=== PATIENT | male | born 1990 | race African-American/Black ===

== ENCOUNTER 2017-03-30 14:56 | Emergency (ER) | payer MEDICAID ==
--- NOTE | 2017-03-30 15:47 | ED ---
Lower Extremity - HPI Summary HPI Summary: Patient presented with a complaint of left knee pain, but when I went in to evaluate him he admitted he was actually here due to pain on his penis. He had oral sex with a new partner five days ago and since then has had increased pain and swelling on the left side of the shaft of his penis. He put warm compresses on the area and last night pus began to drain from the area. He denies drainage from the meatus and denies fevers, chills, or scrotal pain. - History of Current Complaint Chief Complaint: EDExtremityLower Stated Complaint: LEFT KNEE PAIN Time Seen by Provider: 03/30/17 15:46 Hx Obtained From: Patient Mechanism Of Injury: Unknown Onset of Pain: Days - 5 Severity Initially: Mild Severity Currently: Moderate Pain Intensity: 5 Timing: Constant Location: Is Discrete @ - penis Character Of Pain: Sharp, Aching Associated Signs And Symptoms: Positive: Swelling, Redness Aggravating Factor(s): Movement Alleviating Factor(s): Nothing Able to Bear Weight: Yes - Allergies/Home Medications Allergies/Adverse Reactions: Allergies Allergy/AdvReac Type Severity Reaction Status Date / Time Unable to Obtain Allergy Verified 05/09/14 20:09 PMH/Surg Hx/FS Hx/Imm Hx Psychiatric History: Reports: Hx of Violent Episodes Against Others Infectious Disease History: No Infectious Disease History: Denies: Traveled Outside the [place] in Last 30 Days - Family History Known Family History: Positive: None - Social History Occupation: Unemployed Lives: With Family Alcohol Use: unknown Substance Use Type: Reports: Other Substance Use Comment - Amount & Last Used: unable to obtain Smoking Status (MU): Light Every Day Tobacco Smoker Cessation Counseling: Patient Advised to Stop Review of Systems Negative: Fever, Chills Positive: Other - abscess with purulent drainage All Other Systems Reviewed And Are Negative: Yes Physical Exam Triage Information Reviewed: Yes Vital Signs On Initial Exam: Initial Vitals Temp Pulse Resp BP Pulse Ox 97.7 F 82 18 160/73 100 03/30/17 15:18 03/30/17 15:18 03/30/17 15:18 03/30/17 15:18 03/30/17 15:18 Vital Signs Reviewed: Yes Appearance: Positive: Well-Appearing, Well-Nourished, Pain Distress Skin: Positive: Warm, Skin Color Reflects Adequate Perfusion, Dry, Tender, Soft , Weeping Skin/Lesions - left side of penile shaft, Erythema @ Head/Face: Positive: Normal Head/Face Inspection Eyes: Positive: EOMI, VAUGHN, Conjunctiva Clear ENT: Positive: Hearing grossly normal Neck: Positive: Supple, Nontender, No Lymphadenopathy Respiratory/Lung Sounds: Positive: Breath Sounds Present Cardiovascular: Positive: RRR Abdomen Description: Positive: Nontender, Soft Male Genital Exam: Positive: erythema, lesions - left side of penile shaft. Negative: scrotum tenderness (R), scrotum tenderness (L), testicular tenderness (R), testicular tenderness (L), urethral discharge Musculoskeletal: Positive: Strength/ROM Intact Neurological: Positive: Sensory/Motor Intact, Alert, Oriented to Person Place, Time, NV Bundle Intact Distally, Normal Gait Psychiatric: Positive: Affect/Mood Appropriate AVPU Assessment: Alert Diagnostics - Vital Signs Vital Signs Temp Pulse Resp BP Pulse Ox 03/30/17 15:20 97.7 F 81 18 140/89 100 03/30/17 15:18 97.7 F 82 18 160/73 100 - Laboratory Lab Statement: Any lab studies that have been ordered have been reviewed, and results considered in the medical decision making process. Lower Extremity Course/Dx - Diagnoses Differential Diagnosis/HQI/PQRI: Positive: Arthritis, Bursitis, Cellulitis, Contusion, Infection, Puncture Wound, Septic Arthritis, Sprain, Strain Provider Diagnoses: Penile abscess Discharge - Discharge Plan Condition: Stable Disposition: HOME Prescriptions: DOXYcycline CAP(*) [DOXYcycline 100MG CAP(*)] 100 mg PO BID #13 cap Ibuprofen TAB* [Motrin TAB* 800 MG] 800 mg PO TID PRN #30 tab PRN Reason: Pain oxyCODONE/Acetamin 5/325 MG* [Percocet 5/325 TAB*] 1 tab PO Q8H PRN #6 tab MDD 3 PRN Reason: Pain Patient Education Materials: Abscess (ED) Referrals: [facility]ERR[facility] [Outside] Additional Instructions: Please take the antibiotics until they are completely gone. Use ibuprofen 800mg three times daily with meals for the next 3-5 days and add the pain pill as needed. Soak your wound in warm soapy water at least twice daily and milk any pus out of the wound. Keep clean and dry otherwise, allowing for drainage. Follow-up in this emergency department or [facility] for a wound check in two day to make sure you are getting better and not worse.
[2017-03-30] MEDS ORDERED: cefTRIAXone VIAL(*) 250 MG VIAL IM ONE (16:20)
[2017-03-30] MEDS ORDERED: DOXYcycline CAP(*) 100 MG PO ONE (16:20)
[2017-03-30] MEDS ORDERED: Ibuprofen TAB* 600 MG PO ONE (16:23)
[2017-03-30] MEDS ORDERED: oxyCODONE/Acetamin 5/325 MG* TAB PO ONE (16:23)
[2017-03-30] MEDS ORDERED: Lidocaine 1%* 5 ML VIAL ONE ×2 (16:43)
[2017-03-30 17:20] VITALS: BP 137/90
== END 2017-03-30 17:17 | disposition home or self-care (01) ==
LOC: ED 14:56
DX: N48.21 Abscess of corpus cavernosum and penis (principal); F17.200 Nicotine dependence, unspecified, uncomplicated
CPT/HCPCS: 87491; 87529; 87591; 96372; 99283; A9270-GY; J0696

== ENCOUNTER 2017-04-03 09:33 | Emergency (ER) | payer MEDICAID ==
[2017-04-03 09:42] VITALS: BP 147/85
--- NOTE | 2017-04-03 12:25 | ED ---
ED Suture/Wound Check - HPI Summary HPI Summary: Patient returns for a wound check of a draining abscess on the shaft of his penis. He has been compliant with antibiotics and warm soaks. He denies fever, chills, redness, pain or continued drainage and feels it is healing well. - History Of Current Complaint Chief Complaint: EDRashSkinAbscess Stated Complaint: WOUND CHECK Time Seen by Provider: 04/03/17 11:07 Hx Obtained From: Patient Onset/Duration: Gradual Onset Severity: Moderate Pain Intensity: 6 - Allergies/Home Medications Allergies/Adverse Reactions: Allergies Allergy/AdvReac Type Severity Reaction Status Date / Time Unable to Obtain Allergy Verified 05/09/14 20:09 PMH/Surg Hx/FS Hx/Imm Hx Psychiatric History: Reports: Hx of Violent Episodes Against Others Infectious Disease History: No Infectious Disease History: Denies: Traveled Outside the [place] in Last 30 Days - Family History Known Family History: Positive: None - Social History Occupation: Unemployed Lives: With Family Alcohol Use: None Substance Use Type: Reports: None, Other Substance Use Comment - Amount & Last Used: unable to obtain Smoking Status (MU): Light Every Day Tobacco Smoker Cessation Counseling: Patient Advised to Stop Review of Systems Skin: Negative All Other Systems Reviewed And Are Negative: Yes Physical Exam Triage Information Reviewed: Yes Vital Signs On Initial Exam: Initial Vitals Temp Pulse Resp BP Pulse Ox 98 F 77 18 147/85 100 04/03/17 09:36 04/03/17 09:36 04/03/17 09:36 04/03/17 09:36 04/03/17 09:36 Vital Signs Reviewed: Yes Appearance: Positive: Well-Appearing, No Pain Distress, Well-Nourished Skin: Positive: Warm, Skin Color Reflects Adequate Perfusion, Dry, Soft - area of concern has closed and is healed over without obvious opening, erythema or edema Head/Face: Positive: Normal Head/Face Inspection Eyes: Positive: EOMI, VAUGHN, Conjunctiva Clear ENT: Positive: Hearing grossly normal Respiratory/Lung Sounds: Positive: Breath Sounds Present Cardiovascular: Positive: RRR Male Genital Exam: Positive: normal genitalia. Negative: erythema, scrotum tenderness (R), scrotum tenderness (L), testicular tenderness (R), testicular tenderness (L), urethral discharge Musculoskeletal: Negative: Edema Left, Edema Right Neurological: Positive: Sensory/Motor Intact, Alert, Oriented to Person Place, Time, Normal Gait Psychiatric: Positive: Affect/Mood Appropriate AVPU Assessment: Alert Diagnostics - Vital Signs Vital Signs Temp Pulse Resp BP Pulse Ox 04/03/17 11:47 98 F 77 18 147/85 100 04/03/17 09:36 98 F 77 18 147/85 100 - Laboratory Lab Statement: Any lab studies that have been ordered have been reviewed, and results considered in the medical decision making process. Course/Dx - Differential Diagnoses Differential Diagnoses: Abscess, Cellulitis, Compartment Syndrome, Dehiscence, Healing Wound, Hematoma - Clinical Impression Provider Diagnoses: Healing wound Discharge - Discharge Plan Condition: Stable Disposition: HOME Patient Education Materials: Abscess (ED) Referrals: No Primary Care Phys,NOPCP [Primary Care Provider] - Additional Instructions: Continue taking your antibiotics until they are completely gone. Use ibuprofen for pain. Return to the emergency department if symptoms worsen.
== END 2017-04-03 12:34 | disposition home or self-care (01) ==
LOC: ED 09:33
DX: L02.91 Cutaneous abscess, unspecified (principal); F17.210 Nicotine dependence, cigarettes, uncomplicated
CPT/HCPCS: 99281

== ENCOUNTER 2017-08-13 09:26 | Emergency (ER) | payer MEDICAID ==
--- NOTE | 2017-08-13 11:54 | ED ---
Complex/Multi-Sys Presentation - HPI Summary HPI Summary: Pt here w/ ST after seeing a spider in his candy bag. Denies difficulty breathing or swallowing. Has mild nasal congestion - otherwise, no otalgia, sneezing, coughing. Nausea at times w/o vomiting. Pt further reports that prior to this, he was in a hot shower and felt like a demon was attacking his face - initially said he had scabbing and redness but also described that he felt a "paranormal" presence over face and "growling". This has improved w/o residual issues. He also reports a scar over Rt arm from practicing wrestling on a tree a few weeks ago - no pain, just notifying me. Finally, he would like his penis evaluated for scarring. He does not explain this well but after looking in his chart, appears he was seen in 03/2017 for penile wound - when asked if this is what he's referring to, he said yes. No pain here, no wound, no dysuria, fever, chills or testicular pain - simply wants this evaluated for peace of mind. 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 Was on injectable meds in the past but no longer accepts this tx as it "makes him feel weird". Anytime he is seen by MH, they d/c him and he does not f/u outpt. She reports that she keeps in touch with him and hasn't noticed any exacerbation of abnormal behavior - seems to be baseline and no concerns about self care, self harm or harm towards others. - Allergies/Home Medications Allergies/Adverse Reactions: Allergies Allergy/AdvReac Type Severity Reaction Status Date / Time Unable to Obtain Allergy Verified 05/09/14 20:09 PMH/Surg Hx/FS Hx/Imm Hx Previously Healthy: Yes Psychiatric History: Reports: Hx Schizophrenia - paranoid schizophrenia per mom , pt denies, Hx of Violent Episodes Against Others Infectious Disease History: No Infectious Disease History: Denies: Traveled Outside the [place] in Last 30 Days - Family History Known Family History: Positive: None - Social History Occupation: Employed Full-time - per pt, "entrepaneur, musician" Lives: Dormitory/Roommates Alcohol Use: None Hx Substance Use: Yes Substance Use Type: Reports: Marijuana - "helps w/ stress" Substance Use Comment - Amount & Last Used: unable to obtain Hx Tobacco Use: No Smoking Status (MU): Never Smoked Tobacco Review of Systems Constitutional: Negative Negative: Fever, Chills, Fatigue Eyes: Negative Negative: Photophobia, Blurred Vision, Diplopia, Drainage, Erythema Positive: Sore Throat - see HPI. Negative: Ear Ache, Nasal Discharge Cardiovascular: Negative Negative: Palpitations, Chest Pain Respiratory: Negative Negative: Shortness Of Breath, Cough Gastrointestinal: Negative Negative: Abdominal Pain, Vomiting, Diarrhea, Nausea Positive: see HPI Musculoskeletal: Negative Skin: Other - see HPI Neurological: Negative Psychological: Other - see HPI All Other Systems Reviewed And Are Negative: Yes Physical Exam Triage Information Reviewed: Yes Vital Signs On Initial Exam: Initial Vitals Temp Pulse Resp BP Pulse Ox 98.9 F 104 17 152/96 100 08/13/17 09:27 08/13/17 09:27 08/13/17 09:27 08/13/17 09:27 08/13/17 09:27 Vital Signs Reviewed: Yes Appearance: Positive: Well-Appearing, No Pain Distress, Well-Nourished Skin: Positive: Warm, Dry - scarring over Rt distal ventral forearm w/ hypopigmentation - no erythema, no edema, no d/c - NTTP Head/Face: Positive: Normal Head/Face Inspection - sinuses NTTP Eyes: Positive: Normal, EOMI, VAUGHN, Conjunctiva Clear. Negative: Conjunctiva Inflammed, Discharge ENT: Positive: Hearing grossly normal, Pharyngeal erythema - cobblestoning, Nasal congestion, TMs normal. Negative: Nasal drainage, Tonsillar swelling, Tonsillar exudate, Trismus, Muffled/hoarse voice Dental: Negative: Abscess @ Neck: Positive: Supple, Nontender, No Lymphadenopathy Respiratory/Lung Sounds: Positive: Clear to Auscultation, Breath Sounds Present. Negative: Rales, Rhonchi, Stridor, Wheezes Cardiovascular: Positive: Normal, RRR, S1, S2 Abdomen Description: Positive: Nontender, No Organomegaly, Soft Bowel Sounds: Positive: Present Male Genital Exam: Positive: normal genitalia - faint, faded scar along Lt lateral shaft (proximal) -no erythema, no edema, no scabbing, no wound, no drainage, no pain Musculoskeletal: Positive: Normal, Strength/ROM Intact Neurological: Positive: Normal, Sensory/Motor Intact, Alert, Oriented to Person Place, Time, CN Intact II-III Psychiatric: Positive: Other - calm w/ reports of hallucinations and mildly disorganized at times with poor communication but redirectable, cooperative - appears well kept and denies SI/HI - declines MH eval today - [place] Coma Scale Coma Scale Total: 15 Diagnostics - Vital Signs Vital Signs Temp Pulse Resp BP Pulse Ox 08/13/17 09:27 98.9 F 104 17 152/96 100 - Laboratory Lab Results: Lab Results 08/13/17 Range/Units 10:01 Group A Strep Rapid Negative (Negative) Lab Statement: Any lab studies that have been ordered have been reviewed, and results considered in the medical decision making process. Complex Multi-Symp Course/Dx Course Of Treatment: Pt presents w/ ST as primary complaint. Informs me of other concerns which are not acute. Presentation concerning for hallucinations - confirmed dx by previous MH notes here and mom reports dx of paranoid schizophrenia - non-compiant, but functional. She reports routine communication and no changes from baseline. Offered pt MH eval - he declines. W/o SI/HI, pt appears stable to safely care for himself at this time. Discussed PND sx and how to treat - will return to ED or f/u w/ PCP if he has further medical concerns. He will f/u with outpt if he changes his mind or return here if he has acute sx. Discussed w/ Dr. Casas. - Diagnoses Provider Diagnoses: Post-nasal drip, Schizophrenia Discharge - Discharge Plan Condition: Guarded Disposition: HOME Patient Education Materials: Allergic Rhinitis (ED) Referrals: No Primary Care Phys,NOPCP [Primary Care Provider] - [facility] [place] [facility] [Outside] ALIRIO HAWKINS [facility] [Outside] Additional Instructions: You appear to have post nasal drip, most likely from nasal congestion, possible from allergies. You may use the saline nasal spray every 4-6 hours as needed for stuffy nose. You may also try warm salt water gargles, hot tea with honey, throat lozenges and soup brothes to sooth your throat. Rest. Follow-up with PCP if symptoms persist - contact information provided here today. Call for more information to connect with new PCP if you don't have one. For mental health concerns, you can call [facility]. *If you feel like hurting yourself or someone else or are scared about hallucinations, call 911 or return to ED
[2017-08-13] MEDS ORDERED: Saline NASAL SPRAY 0.65%* BTL BOTH NARES ONE (12:04)
[2017-08-13 12:15] VITALS: BP 150/94
== END 2017-08-13 12:14 | disposition home or self-care (01) ==
LOC: ED 09:26
DX: F20.9 Schizophrenia, unspecified (principal); J02.9 Acute pharyngitis, unspecified; R09.82 Postnasal drip
CPT/HCPCS: 87651; 99282

== ENCOUNTER 2017-08-23 15:55 | Emergency (ER) | payer MEDICAID ==
[2017-08-23] MEDS ORDERED: Lidocaine 2% VISCOUS* 15 ML UDC PO ONE (19:19)
[2017-08-23] MEDS ORDERED: Al Hydrox/Mg Hydrox/Simet LIQ* 30 ML UDC PO ONE (19:19)
[2017-08-23 19:54] LABS: Hematocrit 47 % (42-52); Hemoglobin 15.9 g/dl (14.0-18.0); Mean Corpuscular HGB Conc 33 g/dl (31-36); Mean Corpuscular Hemoglobin 26 pg (27-31); Mean Corpuscular Volume 78 fL (80-94); Mean Platelet Volume 8 um3 (7.4-10.4); Red Blood Count 6.07 10^6/ul (4.0-5.4); Red Cell Distribution Width 17 % (10.5-15); White Blood Count 6.4 10^3/ul (3.5-10.8)
[2017-08-23 20:07] LABS: ALT 18 U/L (7-52); AST 25 U/L (13-39); Albumin 4.9 g/dL (3.2-5.2); Alkaline Phosphatase 46 U/L (34-104); Anion Gap 8 mmol/L (2-11); BUN/Creatinine Ratio 15.9 (8-20); Blood Urea Nitrogen 20 mg/dL (6-24); C Reactive Protein < 1.00 mg/L (< 5.00); CO2 Carbon Dioxide 28 mmol/L (22-32); Calcium 10.1 mg/dL (8.6-10.3); Chloride 103 mmol/L (101-111); EGFR African American 89.7 (>60); EGFR Non-African American 69.7 (>60); Globulin 3.8 g/dL (2-4); Glucose 75 mg/dL (70-100); Lipase 12 U/L (11.0-82.0); Potassium 3.6 mmol/L (3.5-5.0); Sodium 139 mmol/L (133-145); Total Protein 8.7 g/dL (6.4-8.9)
[2017-08-23 20:44] LABS: Urine Bilirubin Negative (Negative); Urine Glucose Negative (Negative); Urine Nitrite Negative (Negative)
--- NOTE | 2017-08-23 21:24 | RAD ---
Indication: Epigastric pain. Real-time sonography of the right upper quadrant was performed. The liver is normal in size. No focal lesions or intrahepatic duct dilatation is noted. The gallbladder demonstrates no gallstones, pericholecystic fluid or wall thickening. The common duct measures 2.3 mm. The right kidney measures 9.9 x 4.7 x 4.9 cm with no hydronephrosis. The pancreas demonstrates no mass or pancreatic duct dilatation. The aorta and inferior vena cava are unremarkable. IMPRESSION: No evidence of cholelithiasis or biliary duct dilatation is noted.
--- NOTE | 2017-08-23 21:34 | ED ---
Abdominal Pain/Male - HPI Summary HPI Summary: Pt here w/ epigastric ab pain x few weeks. Intermittent. Feels bloating and like upper ab is "plastic" (after further inquiry, I believe pt means this to say it feels firm). Better when he flatulates. Just started a digestive agent today (vandana seed oil capsules) to assist in this condition - no changes. - History of Current Complaint Chief Complaint: EDAbdPain Stated Complaint: ABD PAIN Time Seen by Provider: 08/23/17 17:53 Hx Obtained From: Patient Pain Intensity: 5 - Allergies/Home Medications Allergies/Adverse Reactions: Allergies Allergy/AdvReac Type Severity Reaction Status Date / Time Penicillins Allergy Hives Verified 08/23/17 16:25 PMH/Surg Hx/FS Hx/Imm Hx Psychiatric History: Reports: Hx Schizophrenia - paranoid schizophrenia per mom , pt denies, Hx of Violent Episodes Against Others - Immunization History Immunizations Up to Date: Yes Infectious Disease History: No Infectious Disease History: Denies: Traveled Outside the [place] in Last 30 Days - Family History Known Family History: Positive: None - Social History Alcohol Use: None Hx Substance Use: Yes Substance Use Type: Reports: Marijuana Substance Use Comment - Amount & Last Used: unable to obtain Hx Tobacco Use: No Smoking Status (MU): Never Smoked Tobacco Physical Exam Vital Signs On Initial Exam: Initial Vitals Temp Pulse Resp BP Pulse Ox 99 F 110 17 178/128 99 08/23/17 16:22 08/23/17 16:22 08/23/17 16:22 08/23/17 16:22 08/23/17 16:22 - Zaida Coma Scale Coma Scale Total: 15 Diagnostics - Vital Signs Vital Signs Temp Pulse Resp BP Pulse Ox 08/23/17 16:22 99 F 110 17 178/128 99 - Laboratory Lab Results: Lab Results 08/23/17 08/23/17 08/23/17 Range/Units 19:39 19:39 19:39 WBC 6.4 (3.5-10.8) 10^3/ul RBC 6.07 H (4.0-5.4) 10^6/ul Hgb 15.9 (14.0-18.0) g/dl Hct 47 (42-52) % MCV 78 L (80-94) fL MCH 26 L (27-31) pg MCHC 33 (31-36) g/dl RDW 17 H (10.5-15) % Plt Count 201 (150-450) 10^3/ul MPV 8 (7.4-10.4) um3 Neut % (Auto) 64.5 (38-83) % Lymph % (Auto) 26.1 (25-47) % [place] % (Auto) 7.6 (1-9) % Eos % (Auto) 0.7 (0-6) % Baso % (Auto) 1.1 (0-2) % Absolute Neuts (auto) 4.1 (1.5-7.7) 10^3/ul Absolute Lymphs (auto) 1.7 (1.0-4.8) 10^3/ul Absolute Monos (auto) 0.5 (0-0.8) 10^3/ul Absolute Eos (auto) 0 (0-0.6) 10^3/ul Absolute Basos (auto) 0.1 (0-0.2) 10^3/ul Absolute Nucleated RBC 0.01 10^3/ul Nucleated RBC % 0.1 Sodium 139 (133-145) mmol/L Potassium 3.6 (3.5-5.0) mmol/L Chloride 103 (101-111) mmol/L Carbon Dioxide 28 (22-32) mmol/L Anion Gap 8 (2-11) mmol/L BUN 20 (6-24) mg/dL Creatinine 1.26 H (0.67-1.17) mg/dL Est GFR ( Amer) 89.7 (>60) Est GFR (Non-Af Amer) 69.7 (>60) BUN/Creatinine Ratio 15.9 (8-20) Glucose 75 (70-100) mg/dL Lactic Acid 1.2 (0.5-2.0) mmol/L Calcium 10.1 (8.6-10.3) mg/dL Total Bilirubin 1.30 H (0.2-1.0) mg/dL AST 25 (13-39) U/L ALT 18 (7-52) U/L Alkaline Phosphatase 46 (34-104) U/L C-Reactive Protein < 1.00 (< 5.00) mg/L Total Protein 8.7 (6.4-8.9) g/dL Albumin 4.9 (3.2-5.2) g/dL Globulin 3.8 (2-4) g/dL Albumin/Globulin Ratio 1.3 (1-3) Lipase 12 (11.0-82.0) U/L Urine Color Urine Appearance Urine pH (5-9) Ur Specific [place] (1.010-1.030) Urine Protein (Negative) Urine Ketones (Negative) Urine Blood (Negative) Urine Nitrate (Negative) Urine Bilirubin (Negative) Urine Urobilinogen (Negative) Ur Leukocyte Esterase (Negative) Urine Glucose (Negative) Urine Ascorbic Acid (Negative) 08/23/17 Range/Units 20:00 WBC (3.5-10.8) 10^3/ul RBC (4.0-5.4) 10^6/ul Hgb (14.0-18.0) g/dl Hct (42-52) % MCV (80-94) fL MCH (27-31) pg MCHC (31-36) g/dl RDW (10.5-15) % Plt Count (150-450) 10^3/ul MPV (7.4-10.4) um3 Neut % (Auto) (38-83) % Lymph % (Auto) (25-47) % [place] % (Auto) (1-9) % Eos % (Auto) (0-6) % Baso % (Auto) (0-2) % Absolute Neuts (auto) (1.5-7.7) 10^3/ul Absolute Lymphs (auto) (1.0-4.8) 10^3/ul Absolute Monos (auto) (0-0.8) 10^3/ul Absolute Eos (auto) (0-0.6) 10^3/ul Absolute Basos (auto) (0-0.2) 10^3/ul Absolute Nucleated RBC 10^3/ul Nucleated RBC % Sodium (133-145) mmol/L Potassium (3.5-5.0) mmol/L Chloride (101-111) mmol/L Carbon Dioxide (22-32) mmol/L Anion Gap (2-11) mmol/L BUN (6-24) mg/dL Creatinine (0.67-1.17) mg/dL Est GFR ( Amer) (>60) Est GFR (Non-Af Amer) (>60) BUN/Creatinine Ratio (8-20) Glucose (70-100) mg/dL Lactic Acid (0.5-2.0) mmol/L Calcium (8.6-10.3) mg/dL Total Bilirubin (0.2-1.0) mg/dL AST (13-39) U/L ALT (7-52) U/L Alkaline Phosphatase (34-104) U/L C-Reactive Protein (< 5.00) mg/L Total Protein (6.4-8.9) g/dL Albumin (3.2-5.2) g/dL Globulin (2-4) g/dL Albumin/Globulin Ratio (1-3) Lipase (11.0-82.0) U/L Urine Color Yellow Urine Appearance Clear Urine pH 5.0 (5-9) Ur Specific [place] 1.031 H (1.010-1.030) Urine Protein Negative (Negative) Urine Ketones Trace H (Negative) Urine Blood Negative (Negative) Urine Nitrate Negative (Negative) Urine Bilirubin Negative (Negative) Urine Urobilinogen Negative (Negative) Ur Leukocyte Esterase Negative (Negative) Urine Glucose Negative (Negative) Urine Ascorbic Acid * H (Negative) Result Diagrams: 08/23/17 19:39 08/23/17 19:39 Lab Statement: Any lab studies that have been ordered have been reviewed, and results considered in the medical decision making process.
[2017-08-23 22:43] VITALS: BP 144/98
== END 2017-08-23 22:41 | disposition home or self-care (01) ==
LOC: ED 15:55
DX: R10.13 Epigastric pain (principal); F20.0 Paranoid schizophrenia
CPT/HCPCS: 36415; 76705; 80053; 81003; 83605; 83690; 85025; 86140; 99282; A9270-GY

== ENCOUNTER 2017-08-24 03:59 | Emergency (ER) | payer MEDICAID ==
[2017-08-24] MEDS ORDERED: Sulfamethox/Trimethoprim DS 800/160* TAB PO ONE (04:28)
[2017-08-24] MEDS ORDERED: Ibuprofen TAB* 600 MG PO ONE (04:29)
[2017-08-24 05:17] VITALS: BP 144/89
--- NOTE | 2017-08-24 05:39 | ED ---
López Maldonado Thomas, scribed for Rey Ann on 08/24/17 at 0430 . Skin Complaint - HPI Summary HPI Summary: The pt is a 26 y/o M presenting to the ED c/o mild swelling to his right orthodox that he first noticed today. The swelling is constant. The swelling is aggravated by nothing and is alleviated by nothing. The patient has treated the swelling with nothing DOCK [employer]. Pt denies pain or any other complaints. - History of Current Complaint Chief Complaint: EDGeneral Time Seen by Provider: 08/24/17 04:25 Stated Complaint: HEAD SWELLING/WARMTH Hx Obtained From: Patient Onset/Duration: Started Hours Ago - swelling first noticed today, Still Present Timing: Constant Current Severity: Mild Pain Intensity: 0 Pain Scale Used: 0-10 Numeric Skin Location: Other: - right orthodox Character: Swelling - mild Aggravating Symptom(s): Nothing Alleviating Symptom(s): Nothing Associated Signs & Symptoms: Negative - Allergy/Home Medications Allergies/Adverse Reactions: Allergies Allergy/AdvReac Type Severity Reaction Status Date / Time Penicillins Allergy Hives Verified 08/24/17 04:06 PMH/Surg Hx/FS Hx/Imm Hx Previously Healthy: No Cardiovascular History: Denies: Hx Myocardial Infarction Respiratory History: Denies: Hx Chronic Obstructive Pulmonary Disease (COPD) Psychiatric History: Reports: Hx Schizophrenia - paranoid schizophrenia per mom , pt denies, Hx of Violent Episodes Against Others - Surgical History Surgery Procedure, Year, and Place: None. Infectious Disease History: No Infectious Disease History: Denies: Traveled Outside the [place] in Last 30 Days - Family History Known Family History: Positive: Other - When asked, he responds "none". - Social History Alcohol Use: None Hx Substance Use: Yes Substance Use Type: Reports: Marijuana Substance Use Comment - Amount & Last Used: unable to obtain Hx Tobacco Use: No Smoking Status (MU): Never Smoked Tobacco Review of Systems Negative: Fever Positive: Other - Mild swelling to right orthodox All Other Systems Reviewed And Are Negative: Yes Physical Exam - Summary Physical Exam Summary: Appearance: Well appearing, no pain distress. Skin: Warm, dry, reflects adequate perfusion. There is mild swelling to the right side of the scalp just above the hairline. Head/face: Normal. Eyes: EOMI, VAUGHN. ENT: Normal. Neck: Supple, nontender. Respiratory: CTA, breath sounds present. Cardiovascular: RRR, pulses symmetrical. Abdomen: Nontender, soft. Bowel: Present. Musculoskeletal: Normal, strength/ROM intact. Neuro: Normal, sensory motor intact, A&Ox3. Triage Information Reviewed: Yes Vital Signs On Initial Exam: Initial Vitals Temp Pulse Resp BP Pulse Ox 98.8 F 108 14 163/99 99 08/24/17 04:02 08/24/17 04:02 08/24/17 04:02 08/24/17 04:02 08/24/17 04:02 Vital Signs Reviewed: Yes Diagnostics - Vital Signs Vital Signs Temp Pulse Resp BP Pulse Ox 08/24/17 04:02 98.8 F 108 14 163/99 99 - Laboratory Lab Statement: Any lab studies that have been ordered have been reviewed, and results considered in the medical decision making process. Course/Dx - Course Assessment/Plan: Patient presents with mild swelling to the right side of the scalp just above the hairline. Diagnosed with folliculitis and given Bactrim and Motrin. - Diagnoses Provider Diagnoses: Folliculitis Discharge - Discharge Plan Condition: Stable Disposition: HOME Prescriptions: Ibuprofen TAB* [Motrin TAB* 600 MG] 600 mg PO Q8H PRN #15 tab MDD 3 PRN Reason: Pain Sulfamethox/Trimethoprim DS* [Bactrim DS 800/160 TAB*] 1 tab PO BID #14 tab Patient Education Materials: Folliculitis (ED) Referrals: [facility] [facility] [Outside] - 3 Days Additional Instructions: Follow up with your primary care provider in three days. You can use the [facility] Physician referral service to find one if needed. Return to the emergency room for any new or worsening symptoms. The documentation as recorded by the López sigala Thomas accurately reflects the service I personally performed and the decisions made by , Rey Ann.
== END 2017-08-24 05:15 | disposition home or self-care (01) ==
LOC: ED 03:59
DX: L73.9 Follicular disorder, unspecified (principal); F20.9 Schizophrenia, unspecified; Z88.0 Allergy status to penicillin
CPT/HCPCS: 99282; A9270-GY

== ENCOUNTER 2017-10-07 10:25 | Emergency (ER) | payer MEDICAID ==
--- NOTE | 2017-10-07 11:47 | ED ---
HPI Chest Pain - HPI Summary HPI Summary: 26M presents with chest pressure two days ago. He has been having intermittent chest pain for months. He denies any SOB with it. He describes it as a pressure in the middle of his chest when it occurs. It last a couple hours and goes away. He denies any n/v. He denies any diaphoresis. He does not smoke. He has no cardiac family history. no history of HTN or DM. He denies any SOB. HE denies any fever or recent illness. He also states he has been having intermittent migraines. does not have one now. no neck stiffness. does not have a primary. also noticed rash on upper and lower extremities two days. rash is itchy. no new products or soaps. no spreading redness. - History of Current Complaint Chief Complaint: EDGeneral Time Seen by Provider: 10/07/17 10:39 Pain Intensity: 0 - Allergy/Home Medications Allergies/Adverse Reactions: Allergies Allergy/AdvReac Type Severity Reaction Status Date / Time Penicillins Allergy Hives Verified 08/24/17 04:06 PMH/Surg Hx/FS Hx/Imm Hx Endocrine/Hematology History: Denies: Hx Anticoagulant Therapy Cardiovascular History: Denies: Hx Myocardial Infarction Respiratory History: Denies: Hx Chronic Obstructive Pulmonary Disease (COPD) Psychiatric History: Reports: Hx Schizophrenia - paranoid schizophrenia per mom , pt denies, Hx of Violent Episodes Against Others - Surgical History Surgery Procedure, Year, and Place: None. Infectious Disease History: No Infectious Disease History: Denies: Traveled Outside the [place] in Last 30 Days - Family History Known Family History: Positive: None, Other - When asked, he responds "none". Negative: Cardiac Disease - Social History Alcohol Use: None Hx Substance Use: Yes Substance Use Type: Reports: Marijuana Substance Use Comment - Amount & Last Used: unable to obtain Hx Tobacco Use: No Smoking Status (MU): Never Smoked Tobacco Review of Systems Negative: Fever Positive: Chest Pain Negative: Shortness Of Breath, Cough Positive: Rash Positive: Headache - not currently All Other Systems Reviewed And Are Negative: Yes Physical Exam Triage Information Reviewed: Yes Vital Signs On Initial Exam: Initial Vitals Temp Pulse Resp BP Pulse Ox 98.1 F 78 16 154/95 100 10/07/17 10:29 10/07/17 10:29 10/07/17 10:29 10/07/17 10:29 10/07/17 10:29 Vital Signs Reviewed: Yes Appearance: Positive: Well-Appearing Skin: Positive: Warm, Dry, Other - couple matches across upper and lower extremities Head/Face: Positive: Normal Head/Face Inspection Eyes: Positive: Normal, EOMI, VAUGHN, Conjunctiva Clear ENT: Positive: Normal ENT inspection, Pharynx normal, TMs normal Respiratory/Lung Sounds: Positive: Clear to Auscultation, Breath Sounds Present Cardiovascular: Positive: Normal, RRR Abdomen Description: Positive: Nontender, Soft Bowel Sounds: Positive: Present Musculoskeletal: Positive: Strength/ROM Intact Neurological: Positive: Sensory/Motor Intact, Alert, Oriented to Person Place, Time, CN Intact II-III Psychiatric: Positive: Normal - [place] Coma Scale Coma Scale Total: 15 Diagnostics - Vital Signs Vital Signs Temp Pulse Resp BP Pulse Ox 10/07/17 10:29 98.1 F 78 16 154/95 100 - Laboratory Result Diagrams: 10/07/17 11:31 10/07/17 11:31 Lab Statement: Any lab studies that have been ordered have been reviewed, and results considered in the medical decision making process. - CT cta CT Interpretation: No Acute Changes CT Interpretation Completed By: Radiologist - EKG No standard instances Cardiac Rate: NL EKG Rhythm: Sinus Rhythm EKG Interpretation: sinus rhythm, early reporlization Chest Pain Course/Dx - Course Course Of Treatment: 26M presents with chest pressure two days ago. He has been having intermittent chest pain for months. He denies any SOB with it. He describes it as a pressure in the middle of his chest when it occurs. It last a couple hours and goes away. He denies any n/v. He denies any diaphoresis. He does not smoke. He has no cardiac family history. no history of HTN or DM. He denies any SOB. HE denies any fever or recent illness. He also states he has been having intermittent migraines. does not have one now. no neck stiffness. does not have a primary. also noticed rash on upper and lower extremities two days. rash is itchy. no new products or soaps. no spreading redness. normal neuro exam. lungs CTA. heart RRR. skin couple patches on skin does not appear to be fungal infection will treat with steriod for potential dermatitis. ekg shows early repol. d-dimer elevated so got CTA which was normal. troponin two normal. patient has no risk factors so will discharge home. gave referral for primary to follow up about migraines and chest pain. patient understand and agrees with plan. - Chest Pain Differential Diagnosis/HQI/PQRI: Chest Wall, Lower Respiratory Infection, Pulmonary Embolism - Diagnoses Provider Diagnoses: Rash, Chest pain, History of migraine Discharge - Discharge Plan Condition: Good Disposition: HOME Prescriptions: Hydrocortisone 1% CREAM* [Hytone Cream 1%*] 1 applic TOPICAL BID #1 tube Patient Education Materials: Dermatitis (ED) Referrals: [facility] [place] [facility] [Outside] Additional Instructions: Place hydrocortisone twice a day until rash clears Take tyenlol or ibuprofen every 6 hours Establish care with primary to follow up Return to ED if develop any new or worsening symptoms
[2017-10-07 11:49] LABS: Hematocrit 49 % (42-52); Hemoglobin 16.2 g/dl (14.0-18.0); Mean Corpuscular HGB Conc 33 g/dl (31-36); Mean Corpuscular Hemoglobin 26 pg (27-31); Mean Corpuscular Volume 79 fL (80-94); Mean Platelet Volume 8 um3 (7.4-10.4); Red Blood Count 6.18 10^6/ul (4.0-5.4); Red Cell Distribution Width 17 % (10.5-15); White Blood Count 3.1 10^3/ul (3.5-10.8)
[2017-10-07 11:51] LABS: Add Diff/Slide Review? Slide Review Added; Comments Flag Yes
[2017-10-07 12:04] LABS: ALT 15 U/L (7-52); AST 22 U/L (13-39); Albumin 4.6 g/dL (3.2-5.2); Alkaline Phosphatase 53 U/L (34-104); Anion Gap 6 mmol/L (2-11); BUN/Creatinine Ratio 12.9 (8-20); Blood Urea Nitrogen 15 mg/dL (6-24); CO2 Carbon Dioxide 27 mmol/L (22-32); Calcium 9.8 mg/dL (8.6-10.3); Chloride 103 mmol/L (101-111); EGFR African American 98.7 (>60); EGFR Non-African American 76.7 (>60); Globulin 3.5 g/dL (2-4); Glucose 95 mg/dL (70-100); Potassium 3.7 mmol/L (3.5-5.0); Sodium 136 mmol/L (133-145); Total Protein 8.1 g/dL (6.4-8.9)
[2017-10-07] MEDS ORDERED: Iohexol 350* (CONTRAST) 500 ML MDV IV ONE (12:19)
--- NOTE | 2017-10-07 13:08 | RAD ---
INDICATION: Chest pain with elevated d-dimer. COMPARISON: None TECHNIQUE: Axial source images were acquired following the administration of 64 mL Omnipaque [address] angiographic technique. Coronal and sagittal reconstructed images were constructed and reviewed. FINDINGS: There there are no filling defects in the pulmonary arteries to indicate acute pulmonary embolic disease. There are no focal infiltrates or effusions. There are no pulmonary parenchymal masses. The heart is normal in size. There is no evidence of pericardial effusion. There is no evidence of aortic aneurysm or dissection. There is no mediastinal, hilar, or axillary lymphadenopathy. The visualized osseous structures appear normal. Limited views of the upper abdomen show no abnormalities. IMPRESSION: No CT of evidence of pulmonary embolism.
[2017-10-07 13:50] LABS: C Reactive Protein < 1.00 mg/L (< 5.00)
[2017-10-07 14:55] VITALS: BP 135/82
== END 2017-10-07 14:57 | disposition home or self-care (01) ==
LOC: ED 10:25
DX: R07.9 Chest pain, unspecified (principal); R21 Rash and other nonspecific skin eruption; F20.9 Schizophrenia, unspecified
CPT/HCPCS: 36415; 71275; 80053; 84443; 84484; 85025; 85379; 86140; 93005; 96374; 99282; Q9967

== ENCOUNTER 2017-10-20 14:35 | Emergency (ER) | payer MEDICAID ==
[2017-10-20 14:57] VITALS: BP 160/90
--- NOTE | 2017-10-20 16:53 | ED ---
Keya Maldonado Emily, scribed for Albert Amato MD on 10/20/17 at 1617 . Skin Complaint - HPI Summary HPI Summary: This patient is a 26 year old M presenting to [facility] with a chief complaint of rash on bilateral arms, bilateral legs, and back that began one week ago. The CC is described as pruritic. The patient rates the pain 0/10 in severity. Symptoms aggravated by nothing. Symptoms alleviated by nothing. Patient denies diaphoresis, nausea, and vomiting. Pt was prescribed hydrocortisone doxycycline for the rash, which has not improved the rash. Medications reviewed. - History of Current Complaint Chief Complaint: EDPrescriptionNeeded Time Seen by Provider: 10/20/17 16:05 Stated Complaint: RASH Hx Obtained From: Patient Onset/Duration: Started Weeks Ago, Still Present Skin Exposure Onset/Duration: Weeks Ago Timing: Constant Onset Severity: Mild Current Severity: Mild Pain Intensity: 0 Pain Scale Used: 0-10 Numeric Skin Location: Other: - Bilateral legs, bilateral arms, and back Aggravating Symptom(s): Nothing Alleviating Symptom(s): Nothing - Allergy/Home Medications Allergies/Adverse Reactions: Allergies Allergy/AdvReac Type Severity Reaction Status Date / Time Penicillins Allergy Hives Verified 08/24/17 04:06 PMH/Surg Hx/FS Hx/Imm Hx Previously Healthy: No Endocrine/Hematology History: Denies: Hx Anticoagulant Therapy Cardiovascular History: Denies: Hx Myocardial Infarction Respiratory History: Denies: Hx Chronic Obstructive Pulmonary Disease (COPD) Psychiatric History: Reports: Hx Schizophrenia - paranoid schizophrenia per mom , pt denies, Hx of Violent Episodes Against Others - Surgical History Surgery Procedure, Year, and Place: None. Infectious Disease History: No Infectious Disease History: Denies: Traveled Outside the [place] in Last 30 Days - Family History Known Family History: Positive: None, Other - When asked, he responds "none". Negative: Cardiac Disease - Social History Occupation: Unemployed Lives: Alone Alcohol Use: None Hx Substance Use: Yes Substance Use Type: Reports: None Substance Use Comment - Amount & Last Used: unable to obtain Hx Tobacco Use: No Smoking Status (MU): Never Smoked Tobacco Review of Systems Negative: Skin Diaphoresis Negative: Vomiting, Nausea Positive: Rash All Other Systems Reviewed And Are Negative: Yes Physical Exam Triage Information Reviewed: Yes Vital Signs On Initial Exam: Initial Vitals Temp Pulse Resp BP Pulse Ox 98.1 F 80 16 160/90 100 10/20/17 14:52 10/20/17 14:52 10/20/17 14:52 10/20/17 14:52 10/20/17 14:52 Vital Signs Reviewed: Yes - [place] Coma Scale Coma Scale Total: 15 Diagnostics - Vital Signs Vital Signs Temp Pulse Resp BP Pulse Ox 10/20/17 14:52 98.1 F 80 16 160/90 100 - Laboratory Lab Statement: Any lab studies that have been ordered have been reviewed, and results considered in the medical decision making process. Course/Dx - Diagnoses Provider Diagnoses: Rash Discharge - Discharge Plan Condition: Stable Disposition: HOME Prescriptions: Hydrocortisone 1% CREAM* [Hytone Cream 1%*] 1 applic TOPICAL BID #1 tube Patient Education Materials: Acute Rash (ED) Referrals: No Primary Care Phys,NOPCP [Primary Care Provider] - Additional Instructions: FOLLOW UP WITH YOUR DOCTOR. RETURN TO THE EMERGENCY DEPARTMENT FOR ANY WORSENING OF YOUR CONDITION OR QUESTIONS OR CONCERNS. The documentation as recorded by the Keya sigala Emily accurately reflects the service I personally performed and the decisions made by me, Albert Amato MD.
== END 2017-10-20 18:06 | disposition home or self-care (01) ==
LOC: ED 14:35
DX: R21 Rash and other nonspecific skin eruption (principal); F20.0 Paranoid schizophrenia; Z88.0 Allergy status to penicillin
CPT/HCPCS: 99281

== ENCOUNTER 2017-12-16 13:33 | Emergency (ER) | payer MEDICAID ==
--- NOTE | 2017-12-16 16:23 | ED ---
Skin Complaint - HPI Summary HPI Summary: 26-year-old male presents with a rash for the past couple months. He states the rash is itchy. He has been using the hydrocortisone without relief. He hasn't tried anything else. He has not seen anyone besides the ED for this rash. He denies any family history of rashes. He denies any recent illness. He denies any new products or soaps. He denies any fever. He denies any chest pain or SOB. He denies any difficult swallowing. - History of Current Complaint Chief Complaint: EDRashSkinAbscess Time Seen by Provider: 12/16/17 15:39 Stated Complaint: RASH Pain Intensity: 0 - Allergy/Home Medications Allergies/Adverse Reactions: Allergies Allergy/AdvReac Type Severity Reaction Status Date / Time MS Penicillins [Penicillins] Allergy Hives Verified 12/16/17 15:02 PMH/Surg Hx/FS Hx/Imm Hx Endocrine/Hematology History: Denies: Hx Anticoagulant Therapy Cardiovascular History: Denies: Hx Myocardial Infarction Respiratory History: Denies: Hx Chronic Obstructive Pulmonary Disease (COPD) Psychiatric History: Reports: Hx Schizophrenia - paranoid schizophrenia per mom , pt denies, Hx of Violent Episodes Against Others - Surgical History Surgery Procedure, Year, and Place: None. Infectious Disease History: No Infectious Disease History: Denies: Traveled Outside the [place] in Last 30 Days - Family History Known Family History: Positive: None, Other - When asked, he responds "none". Negative: Cardiac Disease - Social History Alcohol Use: None Hx Substance Use: Yes Substance Use Type: Reports: Marijuana Substance Use Comment - Amount & Last Used: unable to obtain Hx Tobacco Use: No Smoking Status (MU): Never Smoked Tobacco Review of Systems Negative: Fever Negative: Chest Pain Negative: Shortness Of Breath Positive: Rash All Other Systems Reviewed And Are Negative: Yes Physical Exam Triage Information Reviewed: Yes Vital Signs On Initial Exam: Initial Vitals Temp Pulse Resp BP Pulse Ox 98.4 F 69 16 154/97 100 12/16/17 13:43 12/16/17 13:43 12/16/17 13:43 12/16/17 13:43 12/16/17 13:43 Vital Signs Reviewed: Yes Appearance: Positive: Well-Appearing Skin: Positive: Warm, Dry, Other - macula across arm and legs, sparsely across trunk with excoriation Head/Face: Positive: Normal Head/Face Inspection Eyes: Positive: Normal, EOMI, VAUGHN, Conjunctiva Clear ENT: Positive: Normal ENT inspection, Pharynx normal, TMs normal Respiratory/Lung Sounds: Positive: Clear to Auscultation, Breath Sounds Present Cardiovascular: Positive: Normal, RRR Musculoskeletal: Positive: Normal Neurological: Positive: Normal Psychiatric: Positive: Normal Diagnostics - Vital Signs Vital Signs Temp Pulse Resp BP Pulse Ox 12/16/17 13:43 98.4 F 69 16 154/97 100 - Laboratory Lab Statement: Any lab studies that have been ordered have been reviewed, and results considered in the medical decision making process. Course/Dx - Course Course Of Treatment: 26-year-old male presents with a rash for the past couple months. He states the rash is itchy. He has been using the hydrocortisone without relief. He hasn't tried anything else. He has not seen anyone besides the ED for this rash. He denies any family history of rashes. He denies any recent illness. He denies any new products or soaps. He denies any fever. He denies any chest pain or SOB. He denies any difficult swallowing. on exam has macular rash across arms and legs and sparse on trunk. discussed will treat stronger topical steriod and give referral to derm for follow up. paitent understand and agrees with plan. - Differential Diagnoses - Skin Complaint Differential Diagnoses: Cellulitis, Contact Dermatitis, Tinea - Diagnoses Provider Diagnoses: Rash Discharge - Discharge Plan Condition: Good Disposition: HOME Prescriptions: Triamcinolone 0.5% OINT * 1 applic TOPICAL BID #1 tube Patient Education Materials: Dermatitis (ED) Referrals: Espinoza Alcantar MD [Medical Doctor] - Palmira Prince MD [Medical Doctor] - Additional Instructions: Will try a higher potency topical steroid that can place on area twice a day, avoid the face A referral was given to dermatology, you need to make any appointment with them for further care Return to ED if develop any new or worsening symptoms
[2017-12-16 16:36] VITALS: BP 133/81
== END 2017-12-16 16:35 | disposition home or self-care (01) ==
LOC: ED 13:33
DX: R21 Rash and other nonspecific skin eruption (principal); Z88.0 Allergy status to penicillin
CPT/HCPCS: 99282